=== PATIENT | male | born 1935 | race Caucasian/White ===

== ENCOUNTER 2021-07-21 08:00 | Outpatient (CLI) | payer MEDICARE | END 2021-07-21 08:01 | disposition home or self-care (01) | LOC: PET 08:00 | PROVIDERS: ATTEND Internal Medicine Hematology & Oncology | DX: C83.30 Diffuse large B-cell lymphoma, unspecified site (principal) | CPT/HCPCS: 78815; A9552 ==

== ENCOUNTER 2021-10-13 08:00 | Outpatient (CLI) | payer MEDICARE | END 2021-10-13 08:01 | disposition home or self-care (01) | LOC: PET 08:00 | PROVIDERS: ATTEND Internal Medicine Hematology & Oncology | DX: C83.31 Diffuse large B-cell lymphoma, lymph nodes of head, face, and neck (principal); D50.0 Iron deficiency anemia secondary to blood loss (chronic); N18.30 Chronic kidney disease, stage 3 unspecified; D47.2 Monoclonal gammopathy | CPT/HCPCS: 78815; A9552 ==

== ENCOUNTER 2023-10-10 03:01 | Inpatient (IN) | payer MEDICARE ==
[2023-10-10] MEDS ORDERED: Dextrose 5% in Water 1,000 ML IV PRN (04:51)
[2023-10-10] MEDS ORDERED: Glucagon 1 MG/ML KIT IM PRN (04:51)
[2023-10-10] MEDS ORDERED: Dextrose 50% Abboject 50 ML SYRINGE SLOW IVP PRN (04:51)
[2023-10-10] MEDS ORDERED: Ondansetron PF 4 MG/2 ML Vial IVP PRN (04:51)
[2023-10-10] MEDS ORDERED: Ondansetron ODT 4 MG TAB PO PRN (04:51)
[2023-10-10 05:15] VITALS: BMI 25.7
[2023-10-10 06:14] LABS: Anion Gap 11 mmol/L (10-20); BUN (Urea Nitrogen) 47 mg/dL (8.4-25.7); Calc. Creatinine Clearance 56 mL/min (70-130); Calcium 8.4 mg/dL (7.8-10.44); Carbon Dioxide 26 mmol/L (23-31); Chloride 95 mmol/L (98-107); Estimated GFR 67; Glucose 396 mg/dL (83-110); Potassium 3.7 mmol/L (3.5-5.1); Sodium 128 mmol/L (136-145)
[2023-10-10 06:16] LABS: Hemoglobin A1c 10.1 % (4.0-6.0)
[2023-10-10] MEDS: Carvedilol 6.25 MG TAB PO SCH (08:25)
[2023-10-10] MEDS: Famotidine 20 MG TAB PO SCH (08:25)
[2023-10-10] MEDS: Furosemide 40 MG TAB PO SCH (08:25)
[2023-10-10] MEDS: Famotidine/PF 20 mg/2ml Vial SLOW IVP SCH (08:33)
[2023-10-10] MEDS: TETANUS, DIPHTHERIA TOX,ADULT (TDVAX) 0.5 ML VIAL IM ONE (08:34)
[2023-10-10] MEDS: HumaLOG 300 UNITS/3 ML VIAL SC PRN (11:26)
[2023-10-10] MEDS: Gabapentin 100 MG CAP PO SCH (20:48)
[2023-10-10] MEDS: Atorvastatin Calcium 20 MG TAB PO SCH (20:49)
[2023-10-11] MEDS: Acetaminophen 325 MG TAB PO PRN (01:00)
[2023-10-11 05:46] LABS: #Basophils Less than 0.03 10x3/uL (0.0-0.2); %Basophils 0.1 % (0.0-1.0); %Eosinophils 0.5 % (0.0-10.0); %Monocytes 9.8 % (0.0-10.0); %Neutrophils 84.7 % (42.0-75.0); Hematocrit 29.7 % (42.0-52.0); Hemoglobin 10.5 g/dL (14.0-18.0); Mean Corpuscular HGB CONC 35.4 g/dL (32.0-36.0); Mean Corpuscular Hemoglobin 35.4 pg (27.0-31.0); Mean Platelet Volume 11.2 fL (7.4-10.4); Platelet Count 96 10x3/uL (130-400); RBC Distribution Width 14.4 % (11.5-14.5); Red Blood Cell (RBC) Count 2.97 mill/uL (4.70-6.10)
[2023-10-11 06:07] LABS: Anion Gap 9 mmol/L (10-20); BUN (Urea Nitrogen) 35 mg/dL (8.4-25.7); Calc. Creatinine Clearance 59 mL/min (70-130); Calcium 8.2 mg/dL (7.8-10.44); Carbon Dioxide 30 mmol/L (23-31); Chloride 96 mmol/L (98-107); Estimated GFR 71; Glucose 266 mg/dL (83-110); Potassium 3.6 mmol/L (3.5-5.1); Sodium 131 mmol/L (136-145)
[2023-10-11] MEDS: Levothyroxine Sodium 50 MCG TAB PO SCH (06:52)
[2023-10-11] MEDS: Ascorbic Acid 500 mg Chewable Tablet PO SCH (08:19)
[2023-10-11] MEDS: Ferrous Gluconate 324 MG TAB PO SCH (08:19)
[2023-10-11] MEDS: Multivitamin W/ Minerals 1 TAB PO SCH (09:21)
[2023-10-11] MEDS ORDERED: Glucagon 1 MG/ML KIT IM PRN (12:38)
[2023-10-11] MEDS ORDERED: Dextrose 50% Abboject 50 ML SYRINGE SLOW IVP PRN (12:38)
[2023-10-11] MEDS ORDERED: Dextrose 5% in Water 1,000 ML IV PRN (12:38)
[2023-10-11] MEDS: Gabapentin 300 MG CAP PO SCH (15:52)
[2023-10-11] MEDS: HumaLOG 300 UNITS/3 ML VIAL SC PRN (16:03)
[2023-10-11] MEDS: Famotidine/PF 20 mg/2ml Vial SLOW IVP SCH (21:50)
[2023-10-11] MEDS: Famotidine 20 MG TAB PO SCH (21:57)
[2023-10-11] MEDS: hydrALAZINE 20 MG/ML VIAL SLOW IVP PRN (22:15)
[2023-10-12 05:39] LABS: #Basophils Less than 0.03 10x3/uL (0.0-0.2); %Basophils 0.1 % (0.0-1.0); %Eosinophils 1.9 % (0.0-10.0); %Monocytes 11.3 % (0.0-10.0); %Neutrophils 80.8 % (42.0-75.0); Hemoglobin 10.9 g/dL (14.0-18.0); Mean Corpuscular HGB CONC 35.2 g/dL (32.0-36.0); Mean Corpuscular Hemoglobin 34.5 pg (27.0-31.0); Mean Corpuscular Volume 98.1 fL (78.0-98.0); Mean Platelet Volume 11.4 fL (7.4-10.4); Platelet Count 118 10x3/uL (130-400); RBC Distribution Width 14.2 % (11.5-14.5); Red Blood Cell (RBC) Count 3.16 mill/uL (4.70-6.10)
[2023-10-12 06:06] LABS: ALT (SGPT) 36 U/L (8-55); AST (SGOT) 17 U/L (5-34); Albumin 2.1 g/dL (3.4-4.8); Alkaline Phosphatase 150 U/L (40-110); Anion Gap 13 mmol/L (10-20); BUN (Urea Nitrogen) 25 mg/dL (8.4-25.7); Bilirubin, Total 1.3 mg/dL (0.2-1.2); Calc. Creatinine Clearance 65 mL/min (70-130); Calcium 8.1 mg/dL (7.8-10.44); Carbon Dioxide 30 mmol/L (23-31); Chloride 94 mmol/L (98-107); Estimated GFR 81; Globulin 2.5 g/dL (2.4-3.5); Glucose 212 mg/dL (83-110); Potassium 3.3 mmol/L (3.5-5.1); Protein, Total 4.6 g/dL (5.8-8.1); Sodium 134 mmol/L (136-145)
[2023-10-12] MEDS: Morphine 2 MG/ML VIAL SLOW IVP PRN (15:15)
[2023-10-12] MEDS: Potassium Chloride 20 MEQ TAB PO SCH (16:46)
[2023-10-13 06:53] LABS: #Basophils Less than 0.03 10x3/uL (0.0-0.2); %Basophils 0.1 % (0.0-1.0); %Eosinophils 1.8 % (0.0-10.0); %Lymphocytes 4.4 % (21.0-51.0); %Monocytes 13.9 % (0.0-10.0); %Neutrophils 79.1 % (42.0-75.0); Hematocrit 31.3 % (42.0-52.0); Hemoglobin 10.8 g/dL (14.0-18.0); Mean Corpuscular HGB CONC 34.5 g/dL (32.0-36.0); Mean Corpuscular Hemoglobin 34.2 pg (27.0-31.0); Mean Corpuscular Volume 99.1 fL (78.0-98.0); Mean Platelet Volume 10.7 fL (7.4-10.4); Platelet Count 131 10x3/uL (130-400); RBC Distribution Width 14.6 % (11.5-14.5); Red Blood Cell (RBC) Count 3.16 mill/uL (4.70-6.10)
[2023-10-13 07:30] LABS: ALT (SGPT) 34 U/L (8-55); AST (SGOT) 15 U/L (5-34); Alkaline Phosphatase 135 U/L (40-110); Anion Gap 9 mmol/L (10-20); BUN (Urea Nitrogen) 22 mg/dL (8.4-25.7); Bilirubin, Total 1.1 mg/dL (0.2-1.2); Calc. Creatinine Clearance 66 mL/min (70-130); Calcium 8.3 mg/dL (7.8-10.44); Carbon Dioxide 30 mmol/L (23-31); Chloride 97 mmol/L (98-107); Estimated GFR 82; Globulin 2.5 g/dL (2.4-3.5); Glucose 171 mg/dL (83-110); Potassium 3.7 mmol/L (3.5-5.1); Protein, Total 4.5 g/dL (5.8-8.1); Sodium 132 mmol/L (136-145)
[2023-10-13] MEDS: Insulin Glargine 30 UNITS/0.3 ML VIAL SC SCH ×2 (17:15→21:45)
[2023-10-14 06:34] LABS: #Basophils Less than 0.03 10x3/uL (0.0-0.2); %Basophils 0.1 % (0.0-1.0); %Eosinophils 1.6 % (0.0-10.0); %Lymphocytes 3.6 % (21.0-51.0); %Monocytes 14.6 % (0.0-10.0); %Neutrophils 79.1 % (42.0-75.0); Hematocrit 28.7 % (42.0-52.0); Hemoglobin 9.8 g/dL (14.0-18.0); Mean Corpuscular HGB CONC 34.1 g/dL (32.0-36.0); Mean Corpuscular Hemoglobin 34.8 pg (27.0-31.0); Mean Corpuscular Volume 101.8 fL (78.0-98.0); Mean Platelet Volume 10.7 fL (7.4-10.4); Platelet Count 129 10x3/uL (130-400); RBC Distribution Width 14.7 % (11.5-14.5); Red Blood Cell (RBC) Count 2.82 mill/uL (4.70-6.10)
[2023-10-14 06:49] LABS: ALT (SGPT) 32 U/L (8-55); AST (SGOT) 15 U/L (5-34); Alkaline Phosphatase 130 U/L (40-110); Anion Gap 8 mmol/L (10-20); BUN (Urea Nitrogen) 23 mg/dL (8.4-25.7); Bilirubin, Total 1.2 mg/dL (0.2-1.2); Calc. Creatinine Clearance 55 mL/min (70-130); Calcium 8.2 mg/dL (7.8-10.44); Carbon Dioxide 30 mmol/L (23-31); Chloride 98 mmol/L (98-107); Estimated GFR 66; Globulin 2.4 g/dL (2.4-3.5); Glucose 249 mg/dL (83-110); Potassium 4.9 mmol/L (3.5-5.1); Protein, Total 4.4 g/dL (5.8-8.1); Sodium 131 mmol/L (136-145)
[2023-10-14 07:30] VITALS: TEMP 97.5
[2023-10-14] MEDS: Insulin Glargine 30 UNITS/0.3 ML VIAL SC SCH (07:50)
[2023-10-14 07:56] VITALS: BP 153/61
== END 2023-10-14 16:25 | DRG 83 ==
LOC: IMCU/EMU 04:18
PROVIDERS: ADMIT Surgery; ATTEND Family Medicine
DX: S06.6XAA Traumatic subarachnoid hemorrhage with loss of consciousness status unknown, initial encounter (principal); B02.29 Other postherpetic nervous system involvement; C83.30 Diffuse large B-cell lymphoma, unspecified site; N17.9 Acute kidney failure, unspecified; I48.20 Chronic atrial fibrillation, unspecified; E22.2 Syndrome of inappropriate secretion of antidiuretic hormone; I50.32 Chronic diastolic (congestive) heart failure; E11.65 Type 2 diabetes mellitus with hyperglycemia; W19.XXXA Unspecified fall, initial encounter; I11.0 Hypertensive heart disease with heart failure; E11.9 Type 2 diabetes mellitus without complications; R53.81 Other malaise; I25.10 Atherosclerotic heart disease of native coronary artery without angina pectoris; E78.5 Hyperlipidemia, unspecified; E03.9 Hypothyroidism, unspecified; Z79.01 Long term (current) use of anticoagulants; Z95.1 Presence of aortocoronary bypass graft; Z95.810 Presence of automatic (implantable) cardiac defibrillator; Z90.49 Acquired absence of other specified parts of digestive tract; Z98.890 Other specified postprocedural states; Z82.49 Family history of ischemic heart disease and other diseases of the circulatory system; Z79.899 Other long term (current) drug therapy; Z79.890 Hormone replacement therapy; S06.6X0A Traumatic subarachnoid hemorrhage without loss of consciousness, initial encounter; S00.01XA Abrasion of scalp, initial encounter; S20.411A Abrasion of right back wall of thorax, initial encounter; I50.9 Heart failure, unspecified; I48.91 Unspecified atrial fibrillation; E78.00 Pure hypercholesterolemia, unspecified; Z87.891 Personal history of nicotine dependence; Z79.84 Long term (current) use of oral hypoglycemic drugs; Z95.0 Presence of cardiac pacemaker
CPT/HCPCS: 36415; 36416; 70450; 72128; 80048; 80053; 82010; 82947; 83036; 83880; 83935; 84300; 85025; 85610; 85730; 93306; 96374; 96375; G0390; J0360; J1815; J2272; J7168; S0028